=== PATIENT | female | born 1960 | race Caucasian/White ===

== ENCOUNTER 2017-05-02 10:05 | Emergency (ER) | payer BC ==
[~2017-05-02] VITALS: Ht 167.6 cm; Wt 59.3 kg
[2017-05-02 10:11] VITALS: BP 118/85; PULSE 73; RESP 18; TEMP 98; O2SAT 99
[2017-05-02] MEDS ORDERED: TYLE325T PO (10:17)
[2017-05-02] MEDS ORDERED: METO25TA3 PO (10:17)
[2017-05-02] MEDS ORDERED: ESSE250T P-ARTICULR (10:17)
[2017-05-02] MEDS ORDERED: ASPI81CH6 CHEW (10:17)
[2017-05-02] MEDS ORDERED: SODIUM CHLOR 0.9% 1000 ML INJ 1,000 ML IV ONE ×2 (10:19→11:30)
[2017-05-02] MEDS ORDERED: SODIUM CHLORIDE 0.9% FLUSH 10 ML FLUSH IVF PRN (10:30)
[2017-05-02] MEDS ORDERED: KETOROLAC TROMETHAMINE 30 MG/ML (IVP) VIAL IV PUSH ONE (10:30)
[2017-05-02] MEDS ORDERED: ONDANSETRON HCL 4 MG/2 ML VIAL IV PUSH ONE (10:30)
[2017-05-02 10:34] LABS: AUTOMATED NEUTROPHIL # 2.2 TH/MM3 (1.8-7.7); BASOPHIL % 0.4 % (0.0-2.0); EOSINOPHIL % 1.5 % (0.0-4.0); HEMATOCRIT 39.8 % (35.0-46.0); HEMOGLOBIN 13.2 GM/DL (11.6-15.3); LYMPH % 23.4 % (9.0-44.0); LYMPHOCYTE # 0.7 TH/MM3 (1.0-4.8); MEAN CELL VOLUME 89.3 FL (80.0-100.0); MEAN CORPUSCULAR HEMOGLOBIN 29.5 PG (27.0-34.0); MEAN CORPUSCULAR HGB CONC 33.1 % (32.0-36.0); MEAN PLATELET VOLUME 7.3 FL (7.0-11.0); MONO % 7.5 % (0.0-8.0); MONOCYTE # 0.2 TH/MM3 (0-0.9); NEUT % 67.2 % (16.0-70.0); PLATELET COUNT 183 TH/MM3 (150-450); RED BLOOD COUNT 4.46 MIL/MM3 (4.00-5.30); RED CELL DISTRIBUTION WIDTH 12.1 % (11.6-17.2); WHITE BLOOD COUNT 3.1 TH/MM3 (4.0-11.0)
--- NOTE | 2017-05-02 10:34 | PD ---
HPI Chief Complaint: Complaint Time Seen by Provider: 10:15 Travel History International Travel<30 days: No Contact w/Intl Traveler<30days: No Traveled to known affect area: No History of Present Illness HPI 56 y/o female presents with left flank pain that goes around into the front of her abdomen. She denies other associated symptoms. She states it feels similar to a prior kidney stone. Quality pain is sharp. Severity is severe. She denies specific modifying factors. She states she has follow-up with her primary Dr. Smiley on . She denies prior history of stent or lithotripsy. PFSH Past Medical History Cardiovascular Problems: Yes Kidney Stones: Yes Medical other: Yes (ENDOCARDITIS) Influenza Vaccination: No ?: Not Past Surgical History Section: Yes Coronary Artery Bypass Graft: Yes Social History Alcohol Use: Yes (OCCAS) Tobacco Use: No Substance Use: No Allergies-Medications (Allergen,Severity, Reaction): Coded Allergies: No Known Allergies (Unverified , 05/02/17) Reported Meds & Prescriptions Reported Meds & Active Scripts Active Macrobid (Nitrofurantoin Monoh/Nitrofur Macro) 100 Mg Cap 100 Mg PO BID 7 Days Reported Tylenol (Acetaminophen) 325 Mg Tab 325 Mg PO ONCE Magnesium 250 Mg Tab 1 Tab P-ARTICULR DAILY Metoprolol Tartrate 25 Mg Tab 25 Mg PO BID Aspirin Low Dose (Aspirin) 81 Mg Chew 81 Mg CHEW DAILY Review of Systems Except as stated in HPI: all other systems reviewed are Neg Physical Exam Exam Limitations: Other: (pain) Narrative GENERAL: Well-nourished, well-developed patient. SKIN: Warm and dry. HEAD: Normocephalic and atraumatic. EYES: No injection or drainage. ENT: No nasal drainage noted. NECK: Supple, trachea midline. CARDIOVASCULAR: Regular rate and rhythm RESPIRATORY: Breath sounds equal bilaterally. No accessory muscle use. GASTROINTESTINAL: Abdomen soft, mild tenderness to left mid lateral abdomen, nondistended. EXTREMITIES: No edema. NEUROLOGICAL: Awake and alert. Motor and sensory grossly within normal limits. Normal speech. Data Data Last Documented VS Vital Signs Date Time Temp Pulse Resp B/P (MAP) Pulse Ox O2 Delivery O2 Flow Rate FiO2 05/02/17 12:30 05/02/17 11:34 60 20 98 Room Air 05/02/17 10:11 98.0 Orders Orders Urinalysis - C+S If Indicated (05/02/17 10:09) Complete Blood Count With Diff (05/02/17 10:19) Comprehensive Metabolic Panel (05/02/17 10:19) Ct Abd/Pel W/O Iv Contrast (05/02/17 10:19) Ecg Monitoring (05/02/17 10:19) Iv Access Insert/Monitor (05/02/17 10:19) Ketorolac Inj (Toradol Inj) (05/02/17 10:30) Ondansetron Inj (Zofran Inj) (05/02/17 10:30) Sodium Chloride 0.9% Flush (Ns Flush) (05/02/17 10:30) Sodium Chlor 0.9% 1000 Ml Inj (Ns 1000 M (05/02/17 10:19) Lipase (05/02/17 10:19) Sodium Chlor 0.9% 1000 Ml Inj (Ns 1000 M (05/02/17 11:30) Urine Culture (05/02/17 11:30) Ed Discharge Order (05/02/17 12:18) Labs Laboratory Tests Test 05/02/17 10:30 05/02/17 11:30 White Blood Count 3.1 TH/MM3 Red Blood Count 4.46 MIL/MM3 Hemoglobin 13.2 GM/DL Hematocrit 39.8 % Mean Corpuscular Volume 89.3 FL Mean Corpuscular Hemoglobin 29.5 PG Mean Corpuscular Hemoglobin Concent 33.1 % Red Cell Distribution Width 12.1 % Platelet Count 183 TH/MM3 Mean Platelet Volume 7.3 FL Neutrophils (%) (Auto) 67.2 % Lymphocytes (%) (Auto) 23.4 % Monocytes (%) (Auto) 7.5 % Eosinophils (%) (Auto) 1.5 % Basophils (%) (Auto) 0.4 % Neutrophils # (Auto) 2.2 TH/MM3 Lymphocytes # (Auto) 0.7 TH/MM3 Monocytes # (Auto) 0.2 TH/MM3 Eosinophils # (Auto) 0.0 TH/MM3 Basophils # (Auto) 0.0 TH/MM3 CBC Comment DIFF FINAL Differential Comment Blood Urea Nitrogen 18 MG/DL Creatinine 0.69 MG/DL Random Glucose 101 MG/DL Total Protein 7.6 GM/DL Albumin 4.0 GM/DL Calcium Level 9.6 MG/DL Alkaline Phosphatase 83 U/L Aspartate Amino Transf (AST/SGOT) 15 U/L Alanine Aminotransferase (ALT/SGPT) 20 U/L Total Bilirubin 0.6 MG/DL Sodium Level 138 MEQ/L Potassium Level 4.3 MEQ/L Chloride Level 102 MEQ/L Carbon Dioxide Level 30.7 MEQ/L Anion Gap 5 MEQ/L Estimat Glomerular Filtration Rate 87 ML/MIN Lipase 127 U/L Urine Collection Type CLEAN CATCH Urine Color YELLOW Urine Turbidity CLEAR Urine pH 7.0 Urine Specific [place] 1.010 Urine Protein NEG mg/dL Urine Glucose (UA) NEG mg/dL Urine Ketones NEG mg/dL Urine Occult Blood NEG Urine Nitrite NEG Urine Bilirubin NEG Urine Leukocyte Esterase SMALL Urine RBC 0-3 /hpf Urine WBC 9-14 /hpf Urine Squamous Epithelial Cells 0-5 /hpf Urine Amorphous Sediment FEW Microscopic Urinalysis Comment CULTURE INDICATED Urine Collection Time 11:30 [facility] Medical Decision Making Medical Screen Exam Complete: Yes Emergency Medical Condition: Yes Medical Record Reviewed: Yes (past history confirmed) Interpretation(s) CBC & BMP Diagram 05/02/17 10:30 Total Protein 7.6, Albumin 4.0, Calcium Level 9.6, Alkaline Phosphatase 83, Aspartate Amino Transf (AST/SGOT) 15, Alanine Aminotransferase (ALT/SGPT) 20, Total Bilirubin 0.6 Last 24 hours Impressions Abdomen/Pelvis CT 05/02/17 1019 Signed Impressions: Service Date/Time: Tuesday, May 02, 2017 10:45 - CONCLUSION: 1. Right kidney: 2. There are numerous punctate nonobstructing stones identified as described above. There is no hydronephrosis. 3. 4. Left kidney: 5. There are numerous punctate stones as above. No definite obstructing stone is seen. No definite stone identified within the ureter. Ton Pat MD ua with uti Differential Diagnosis Kidney stone, UTI, pancreatitis, musculoskeletal Narrative Course Will check blood work, urinalysis, CT scan abdominal pelvis and dose with Toradol, Zofran, IV fluids and reevaluate ua with uti, Patient denies any new complaints and states that they are feeling better. Patient happy with care, all questions answered. Patient knows that follow up is incumbent on them and to return to the emergency room immediately if new or worsening symptoms develop. Patient given strict return precautions, vitals reviewed and are normal, agrees to further workup as an outpatient. Diagnosis Primary Impression: UTI (urinary tract infection) Qualified Codes: N39.0 - Urinary tract infection, site not specified Additional Impression: Abdominal pain Qualified Codes: R10.9 - Unspecified abdominal pain Patient Instructions: General Instructions Additional Instructions: return as needed, follow with primary this week, tylenol as needed, take antibiotic as prescribed Med/Other Pt SpecificInfo: Prescription(s) given Scripts Nitrofurantoin Monohydrate Macrocrystals (Macrobid) 100 Mg Cap 100 MG PO BID for Infection for 7 Days, #14 CAP 0 Refills Prov: Jacki Hoffman MD 05/02/17 Disposition: 01 DISCHARGE HOME Condition: Stable Jacki Hoffman MD May 02, 2017 10:34
[2017-05-02 10:52] LABS: CHLORIDE 102 MEQ/L (98-107); SODIUM (NA) 138 MEQ/L (136-145)
[2017-05-02 10:55] LABS: BICARBONATE 30.7 MEQ/L (21.0-32.0); CALCIUM 9.6 MG/DL (8.5-10.1); GLUCOSE,RANDOM 101 MG/DL (74-106); LIPASE 127 U/L (73-393)
[2017-05-02 10:56] LABS: BLOOD UREA NITROGEN 18 MG/DL (7-18)
[2017-05-02 10:58] LABS: ALT (GPT) 20 U/L (10-53); AST (GOT) 15 U/L (15-37); CREATININE 0.69 MG/DL (0.50-1.00); GLOMERULAR FILTRATION RATE 87 ML/MIN (>89)
[2017-05-02 11:00] LABS: TOTAL BILIRUBIN ADULT 0.6 MG/DL (0.2-1.0); TOTAL PROTEIN 7.6 GM/DL (6.4-8.2)
[2017-05-02 11:01] LABS: ALKALINE PHOSPHATASE 83 U/L (45-117)
--- NOTE | 2017-05-02 11:01 | RADRPT ---
EXAM DATE/TIME: 05/02/2017 10:45 [place] COMPARISON: No previous studies available for comparison. INDICATIONS : Left flank pain. ORAL CONTRAST: No oral contrast ingested. RADIATION DOSE: 8.90 CTDIvol (mGy) MEDICAL HISTORY : Cardiovascular disease. Renal calculi. SURGICAL HISTORY : CABG section. ENCOUNTER: Initial ACUITY: 1 day PAIN SCALE: 3/10 LOCATION: Left flank TECHNIQUE: Volumetric scanning of the abdomen and pelvis was performed. Using automated exposure control and ad justment of the mA and/or kV according to patient size, radiation dose was kept as low as reasonably achievable to obtain optimal diagnostic quality images. DICOM format image data is available electro nically for review and comparison. FINDINGS: The limited portion of the lung base visualized is clear. Right kidney/ureter: The examination demonstrates numerous punctate stones within the collecting system. The stones range in size from one-2 mm up to 7.5 mm. There is no hydronephrosis. The right ureter is followed from its course and is unremarkable in appearance. Left kidney/ureter: The examination again demonstrates numerous punctate stones within the collecting system. These range in size from 1-2 mm up to 5.7 mm. There is no hydronephrosis. The left ureter is followed throughout its course. It is normal in caliber throughout. No definite stone is seen within the ureter. The bladder is unremarkable in appearance. No stones are identified within the bladder. CT source data: The portions of liver and spleen visualized are unremarkable. The pancreas and adrenal glands are int act. There is no retroperitoneal adenopathy. No free air or free fluid is present. The visualized loo ps of small and large bowel are unremarkable. The osseous structures are grossly intact. CONCLUSION: 1. Right kidney: 2. There are numerous punctate nonobstructing stones identified as described above. There is no hydro nephrosis. 3. 4. Left kidney: 5. There are numerous punctate stones as above. No definite obstructing stone is seen. No definite st one identified within the ureter. Ton Pat MD on May 02, 2017 at 10:53 Board Certified Radiologist. This report was verified electronically.
[2017-05-02 11:34] VITALS: BP 130/68; PULSE 60; RESP 20; O2SAT 98
[2017-05-02 11:48] LABS: BILIRUBIN, URINE NEG (NEG); BLOOD, URINE NEG (NEG); GLUCOSE,URINE NEG (NEG); KETONE, URINE NEG (NEG); NITRITE,URINE NEG (NEG); URINE LEUKOCYTE ESTERASE SMALL (NEG)
[2017-05-02 12:00] LABS: URINE COLOR YELLOW (YELLW/STRAW)
[2017-05-02 12:01] LABS: AMORPHOUS SEDIMENT, URINE FEW; RBC, URINE 0-3 /hpf (0-3); SQUAMOUS EPITHELIAL CELL URINE 0-5 /hpf (0-5)
[2017-05-02] MEDS ORDERED: MACR100C2 PO (12:15)
== END 2017-05-02 12:48 | disposition home or self-care (01) ==
LOC: PHED 10:05
DX: N39.0 Urinary tract infection, site not specified (principal); Z87.442 Personal history of urinary calculi
CPT/HCPCS: 74176; 80053; 81001; 83690; 85025; 87086; 96361; 96374; 96375; 99284; J1885; J2405; J7030